=== PATIENT | male | born 1935 | race Caucasian/White ===

== ENCOUNTER → 2018-11-09 09:03 | Outpatient (CLI) | payer MEDICARE ==
[~2018-11-09 09:03] MED LIST: BAYER CHEWABLE81 MG PO; COREG 3.1253.125 MG PO; MAXZIDE-25 MG T1 TAB PO; PLAVIX75 MG PO; PRAVACHOL20 MG PO; PRINIVIL10 MG PO; SYNTHROID25 MCG PO
--- NOTE | 2018-11-15 10:00 | ST ---
PATIENT:TOSHIA VÁSQUEZ MEDICAL RECORD: [id number] SEX: M LOCATION:[facility] ORDER #: ADMISSION DATE: 11/09/18 AGE OF PATIENT: 83 REFERRING PHYSICIAN: INTERPRETING PHYSICIAN: NANCY GONZALEZ MD DATE OF SERVICE: 11/09/2018 Nuclear Stress Test INDICATIONS: Angina, coronary artery disease, hypertension, and hyperlipidemia. PROCEDURE IN DETAIL: He was exercised on standard Lexiscan protocol with 33 mCi of sestamibi injected at peak stress and 11 mCi used previously for rest images. FINDINGS: Gated SPECT reveals preserved ejection fraction at 64% with good wall motion and thickening and brightening throughout all segments. SPECT Imaging: Cardiolite was used as myocardial fusion agent. There is homogeneous uptake throughout all segments at rest and stress with no evidence of inducible ischemia or previous infarction. OVERALL IMPRESSION: 1. This is a normal nuclear stress test with no evidence of inducible ischemia or previous infarction. 2. Gated SPECT reveals a preserved ejection fraction at 64%. In this patient with ongoing symptomatology, the current scan does not suggest the presence of hemodynamically significant coronary artery disease. Evaluate noncardiac etiology of chest pain. TRANSINT:[id number] Voice Confirmation ID: [id number] DOCUMENT ID: [id number] NANCY GONZALEZ MD at 1000 CC: FRANNIE AMBRIZ [id number] DICTATION DATE: 11/13/18 0957 MENTAL HYGIENIST: 11/14/18 0039 DEP CLI 11/09/18 [place] [id number] [place] [address]
--- NOTE | 2018-11-15 10:00 | EC ---
PATIENT:TOSHIA VÁSQUEZ DATE OF SERVICE: 11/09/18 SEX: M MEDICAL RECORD: [id number] DATE OF : 39 [facility] AGE OF PATIENT: 83 ADMISSION DATE: 11/09/18 REFERRING PHYSICIAN: INTERPRETING PHYSICIAN: NANCY LUNDBERG MD ECHOCARDIOGRAM REPORT ECHO CHARGES 4 ECHO COMPLETE Date: 11/09/18 CLINICAL DIAGNOSIS: CAD/TRICUSPID REGURG ECHOCARDIOGRAPHIC MEASUREMENTS (adult normal given) AC root (d.<3.7cm) 3.8 cm LV Septum d (<1.2 cm> 1.3 cm Valve Excursion 1.8 cm LV Septum (systole) 1.4 cm Left Atria (s.<4.0cm> 3.7 cm LVPW d(<1.2cm) 1.3 cm RV (d.<2.3cm) 4.0 cm LVPW (sytole) 1.5 cm LV diastole(<5.6CM) 5.2 cm MV E-F(>70mm/sec) cm LV systole 4.1 cm LVOT Diameter 2.0 cm MV exc.(>10mm) 1.4 cm Est.ejection fraction (50-75%) % DOPPLER: LVIT cm/sec A 73.0 cm/sec E 48.0 cm/sec LA cm/sec RVSP 34 mmHg LVOT 118 cm/sec AOP1/2T m/s Asc. Ao 165 cm/sec RVOT 89 cm/sec RA cm/sec PA 15 cm/sec AV Gradient Peak 10.95mmHg AV Mean 6.30 mmHg AV Area 2.6 cm MV Gradient Peak 3.15 mmHg MV Mean 1.34 mmHg MV Area cm COMMENTS: Insurance Auditor: Vicenta JONES Formulator: 1 Dr. Lundberg TAPE# PACS Pericardial Effusion N DATE OF SERVICE: 11/09/2018 FINDINGS: 1. Left ventricular chamber size is within normal limits. Left ventricular systolic function is normal. Overall ejection fraction is estimated at 55%. 2. Left atrium is within normal limits at 3.7 cm. Right atrium and right ventricular chamber sizes are mildly dilated. 3. Valvular structures have normal structure and motion. 4. Doppler interrogation reveals mild aortic insufficiency, mild mitral regurgitation, and mild tricuspid regurgitation. No other valvular ECHOCARDIOGRAM REPORT [id number] TOSHIA VÁSQUEZ insufficiency or stenosis. Pulmonary systolic pressure is normal, estimated at 34 mmHg. 5. No evidence of pericardial effusion or left ventricular thrombus. TRANSINT:[id number] Voice Confirmation ID: [id number] DOCUMENT ID: [id number] NANCY LUNDBERG MD at 1000 CC: [id number] DICTATION DATE: 11/13/18 1039 COOK RESTAURANT: 11/13/18 1300 DEP CLI 11/09/18 [place] [id number] [place] [id number]
== END | disposition home or self-care (01) ==
LOC: D.HCCARDIO 09:03
PROVIDERS: ATTEND Internal Medicine Interventional Cardiology
DX: I25.10 Atherosclerotic heart disease of native coronary artery without angina pectoris (principal)